=== PATIENT | female | born 1990 | race Caucasian/White ===

== ENCOUNTER 2016-08-07 14:36 | Emergency (ER) | payer SELFPAY ==
[2016-08-07 15:44] LABS: ABSOLUTE NEUTROPHIL COUNT 7.2 K/mm3 (1.8-7.7); BASO % 0.1 % (0.2-1.0); EOS % 0.2 % (0.9-2.9); HEMATOCRIT 35.3 % (37.0-47.0); HEMOGLOBIN 11.8 gm/l (12.0-16.0); IMM NEUT% 0.2 % (0-1); LYMPH # 1.6 (1.0-4.8); LYMPH % 17.1 % (15-45); MEAN CELL VOLUME 91.2 fl (81.0-99.0); MEAN CORPUSCULAR HEMOGLOBIN 30.5 pg (27.0-31.0); MEAN CORPUSCULAR HGB CONC 33.4 g/dl (33.0-37.0); MEAN PLATELET VOLUME 8.9 fl (7.4-10.4); MONO # 0.5 (0.0-0.8); MONO % 5.1 % (4-12); NEUT % 77.3 % (43-75); PLATELET COUNT 262 K/mm3 (130-400); RED CELL DISTRIBUTION WIDTH 12.4 % (11.5-14.5)
[2016-08-07 15:45] LABS: SPECIFIC GRAVITY 1.025 (1.001-1.030); URINE BILIRUBIN NEGATIVE (NEGATIVE); URINE BLOOD 3+ (NEGATIVE); URINE GLUCOSE (UA) NEGATIVE (NEGATIVE); URINE LEUKOCYTE ESTERASE TRACE (NEGATIVE); URINE NITRITE POSITIVE (NEGATIVE); URINE PROTEIN TRACE (NEGATIVE); URINE UROBILINOGEN NORMAL (0-1 mg/dl)
[2016-08-07 15:47] LABS: URINE APPEARANCE CLOUDY; URINE COLOR YELLOW
[2016-08-07 15:55] LABS: URINE BACTERIA 4+; URINE RBC 15-20 /hpf
[2016-08-07 16:03] LABS: ALB/GLOB RATIO 1.1 (>1.0); ALBUMIN 3.9 gm/dL (3.5-5.7); CALCIUM 8.9 mg/dL (8.6-10.3)
[2016-08-07] MEDS ORDERED: ONDANSETRON 4 MG/2ML 2 ML VIAL ONE (16:05)
[2016-08-07] MEDS ORDERED: CEFTRIAXONE 1 GRAM DUPLEX 50 ML IV ONE (16:05)
[2016-08-07] MEDS ORDERED: SODIUM CHLORIDE 0.9% 1,000 ML ONE (16:05)
--- NOTE | 2016-08-07 16:25 | US ---
ABDOMINAL-LIMITED COMPARISON: None HISTORY: Right lower quadrant pain. . Check appendix. FINDINGS: Area scanned: Right lower quadrant of the abdomen. Appendix: Not visible.. Free fluid: None. Secondary signs of appendicitis: No fecalith, pericecal fluid, or increased pericecal echogenicity. Lymphadenopathy: None IMPRESSION: 1. The appendix is not visible. No secondary signs of acute appendicitis. The report was sent to the emergency department at [employer] system 08/07/2016 at 16:26
--- NOTE | 2016-08-07 16:25 | US ---
OB COMP <14 WKS, OB TRANSVAGINAL CLINICAL HISTORY: 26 years old. Gestational age 6 weeks 5 days. LMP 06/21/2016. ANUJA 03/28/2017. COMPARISON: None TECHNIQUE: Transabdominal and transvaginal. FINDINGS: Uterus: Single intrauterine gestation. Gestational sac size and shape: Normal size and shape. Mean sac diameter: 1.4 cm = 5 weeks 4 days. Estimated date of confinement: 04/05/2017 Embryo: No Yolks sac: Yes Placenta: Too early to comment. Previa: Too early comment. Lexii-gestational bleed: None. Right ovary: 3.5 x 1.9 x 1.9 cm. Normal blood flow. Left ovary: 2.4 x 3.2 x 1.4 cm. Normal blood flow. Impression: 1. Intrauterine gestational sac with yolk sac but no visible ovary, 5 weeks 4 days gestational age. 2. No perigestational bleed. 3. No adnexal mass or evidence of ectopic . The report was sent to the emergency department [facility] 08/07/2016 at 16:26
== END 2016-08-07 17:45 | disposition home or self-care (01) ==
LOC: ED 14:36
DX: O23.41 Unspecified infection of urinary tract in pregnancy, first trimester (principal); O46.91 Antepartum hemorrhage, unspecified, first trimester; O21.0 Mild hyperemesis gravidarum; Z3A.01 Less than 8 weeks gestation of pregnancy
CPT/HCPCS: 83690; 84702; 85025; 87086; 80053; 87186; 81001; 76817; 76801; 86901; 76705; 96375; 99284 ×2; 96374; 51701; J2405; J7030; J0696

== ENCOUNTER 2016-08-08 09:38 | Emergency (ER) | payer SELFPAY ==
[2016-08-08 10:19] LABS: ABSOLUTE NEUTROPHIL COUNT 6.8 K/mm3 (1.8-7.7); BASO % 0.1 % (0.2-1.0); HEMATOCRIT 36.5 % (37.0-47.0); HEMOGLOBIN 12.1 gm/l (12.0-16.0); IMM NEUT% 0.2 % (0-1); LYMPH # 1.1 (1.0-4.8); LYMPH % 13.2 % (15-45); MEAN CORPUSCULAR HEMOGLOBIN 30.2 pg (27.0-31.0); MEAN CORPUSCULAR HGB CONC 33.2 g/dl (33.0-37.0); MEAN PLATELET VOLUME 8.8 fl (7.4-10.4); MONO # 0.3 (0.0-0.8); MONO % 3.4 % (4-12); NEUT % 83.1 % (43-75); PLATELET COUNT 262 K/mm3 (130-400); RED CELL DISTRIBUTION WIDTH 12.4 % (11.5-14.5)
--- NOTE | 2016-08-08 11:42 | US ---
OB COMP <14 WKS, OB TRANSVAGINAL CLINICAL HISTORY: Gestational age 6 weeks 6 days. LMP 06/21/2016. . ANUJA 03/28/2017. Bright red blood since this morning. Passed a blood clot. Pelvic cramping. COMPARISON: 08/07/2016 TECHNIQUE: Transabdominal and transvaginal. FINDINGS: Uterus: Intrauterine gestational sac, unchanged in position. Gestational sac size and shape: Normal size and shape. Mean sac diameter: 1.47 cm = 5 weeks 5 days. Estimated date of confinement: 04/05/2017 Embryo: No Yolks sac: Yes Placenta: Too early to comment. Previa: Too early comment. Lexii-gestational bleed: Inferior to the gestational sac, 5.5 x 9.4 mm Right ovary: 3.9 x 2.6 x 2 cm. 2.3 x 2.6 x 2 cm corpus luteum. Normal blood flow. Left ovary: 2.9 x 1.4 x 1.5 cm. Normal blood flow. Impression: 1. The gestational sac size has increased, gestational age 5 weeks 5 days, compared to 5 weeks 4 days yesterday. However, no embryo is visible. The yolk sac is visible. Along with the patient's signs and symptoms and the small perigestational bleed, evidence of threatened spontaneous . The report was transmitted to the emergency department [facility] record system 08/08/2016 at 11:43
== END 2016-08-08 13:02 | disposition home or self-care (01) ==
LOC: ED 09:38
DX: O20.0 Threatened abortion (principal); Z3A.01 Less than 8 weeks gestation of pregnancy